=== PATIENT | female | born 1935 | race Caucasian/White ===

== ENCOUNTER → 2018-03-20 12:20 | Outpatient (CLI) | payer MEDICARE, BC | END | disposition home or self-care (01) | LOC: D.US 12:20 | DX: R09.89 Other specified symptoms and signs involving the circulatory and respiratory systems (principal) ==

== ENCOUNTER → 2018-04-08 08:58 | Outpatient (CLI) | payer MEDICARE, BC | END | disposition home or self-care (01) | LOC: D.US 08:58 | DX: E04.1 Nontoxic single thyroid nodule (principal) ==

== ENCOUNTER → 2018-04-13 09:31 | Outpatient (CLI) | payer MEDICARE, BC | END | disposition home or self-care (01) | LOC: D.NM 09:31 | DX: E04.1 Nontoxic single thyroid nodule (principal) ==